=== PATIENT | male | born 1950 | race Asian ===

== ENCOUNTER 2021-02-05 00:44 | Inpatient (IN) | payer MEDICARE, OTHER ==
[~2021-02-05] VITALS: Ht 167.6 cm; Wt 70.8 kg
[2021-02-05 00:44] VITALS: BP_SYST 101
[~2021-02-05 00:44] MED LIST: ALBU17AE13 INH; AMOX500C2 PO; ATEN-41 PO; FURO20TA4 IVP; KLOR-CON PO; LISI20TA30 PO; WARF3TAB59 PO
--- NOTE | 2021-02-05 00:44 | NUR ---
ADMISSION- DIRECT ADMIT FROM [facility]: The patient, SANTANA BLUM, 70 y/o, M DIRECTLY admitted by SOL WLATON MD, was given written information regarding hospital policies, unit procedures and contact persons. Valuables were checked and DOCUMENTED.
--- NOTE | 2021-02-05 01:30 | NUR ---
INITIAL NOTE AT INITIAL ASSESSMENT, PATIENT IS RESTING IN BED, STABLE, NO SIGNS OF RESPIRATORY DISTRESS. PATIENT VERBALIZES NO PAIN. PLAN OF CARE FOR THE EVENING IS COMMUNICATED WITH THE PATIENT. PATIENT DEMONSTRATES CORRECT USAGE OF CALL LIGHT AT THIS TIME. BED IS LOCKED, ALARMED, AND AT THE LOWEST LEVEL. FALL SAFETY EDUCATION PROVIDED. FALL, SAFETY, ASPIRATION, AND RESPIRATORY PRECAUTIONS WILL BE TAKEN THROUGHOUT THE SHIFT.
--- NOTE | 2021-02-05 01:50 | NUR ---
HYGIENE CARE NOTE HYGIENE CARE IS PROVIDED AT THIS TIME, FRESH LINENS PROVIDED, AND PATIENT IS REPOSITIONED FOR COMFORT. PATIENT TOLERATED WELL. CALL LIGHT PLACED WITHIN REACH. BED IS LOCKED, ALARMED, AND AT THE LOWEST LEVEL.
[2021-02-05] MEDS ORDERED: ALBUTEROL 90 MCG INH PRN (02:00)
[2021-02-05] MEDS ORDERED: ALBUTEROL MDI INHALATION 8 GM INH INH PRN (02:15)
[2021-02-05] MEDS ORDERED: FAMO20TA8 PO (02:59)
[2021-02-05] MEDS ORDERED: FLUT1BLS10 INH (02:59)
[2021-02-05] MEDS ORDERED: ACET325T PO (02:59)
[2021-02-05] MEDS ORDERED: CARV3.1246 PO (02:59)
[2021-02-05] MEDS ORDERED: DOXY100T2 IVPB (02:59)
[2021-02-05] MEDS ORDERED: LOSA50TA3 PO (02:59)
[2021-02-05] MEDS: ALBUTEROL SULFATE 0.083% 2.5 MG/3 ML VIAL.NEB INH PRN ×2 (03:55→08:04)
--- NOTE | 2021-02-05 03:55 | NUR ---
BEHAVIOR PATIENT WAS AGITATED AND RUDE DURING THE SHIFT. FOR EXAMPLE, PATIENT WANTED A BREATHING TREATMENT AND ALTHOUGH HIS OXYGEN SATURATION WAS 99%, RT WAS CALLED, AND WITHIN THE 15 MINUTES IT TOOK TO GET THE ORDER, GET THE ORDER APPROVED BY PHARMACY AND TO PAGE RT, PATIENT CALLED THE NURSING STATION 8 TIMES YELLING AND SCREAMING BECAUSE HE WANTED HIS BREATHING TREATMENT.
--- NOTE | 2021-02-05 06:10 | NUR ---
COMMUNICATION W/ DR. WALTON COMMUNICATED TO DR. WALTON THAT PATIENT WAS ON COUMADIN THERAPY, DR. WALTON GAVE NEW ORDERS. ALL ORDERS READ BACK, VERIFIED, AND ENTERED.
--- NOTE | 2021-02-05 06:40 | NUR ---
CLOSING NOTE PATIENT SLEPT WELL THROUGHOUT THE SHIFT, NO SHORTNESS OF BREATH NOTED. AT THIS TIME, PATIENT IS RESTING IN BED, STABLE, NO SIGNS OF RESPIRATORY DISTRESS. CALL LIGHT IS WITHIN REACH. BED IS LOCKED, ALARMED, AND AT THE LOWEST LEVEL. FALL, SAFETY, ASPIRATION, AND RESPIRATORY PRECAUTIONS HAVE BEEN TAKEN THROUGHOUT THE SHIFT. WILL CONTINUE TO MONITOR UNTIL SHIFT REPORT IS GIVEN AT BEDSIDE TO AM NURSE. Addendum: 02/05/21 at 0743 by Ruba Read RN NO DIARRHEA NOTED DURING THE NIGHT.
[2021-02-05 08:00] VITALS: BP_SYST 112
[2021-02-05 08:02] LABS: BASOPHILS % (AUTO) 0.1 % (0.0-2.0); EOSINOPHILS # (AUTO) 0.1 K/uL (0.0-0.4); HEMOGLOBIN 11.2 g/dL (14.0-18.0); LYMPHOCYTES # (AUTO) 0.2 K/uL (1.0-5.5); LYMPHOCYTES % (AUTO) 1.5 % (20.5-51.5); MEAN CORPUSCULAR HEMOGLOBIN 30 pg (27-31); MEAN CORPUSCULAR HGB CONC 33 % (32-36); MEAN CORPUSCULAR VOLUME 91 fL (79.0-98.0); MONOCYTES # (AUTO) 0.5 K/uL (0.0-1.0); MONOCYTES % (AUTO) 4.2 % (1.7-9.3); NEUTROPHILS % (AUTO) 93.2 % (40.0-70.0); PLATELET COUNT (AUTO) 140 K/uL (130-430); RED BLOOD CELL COUNT(AUTO) 3.74 MIL/uL (4.2-6.2); RED CELL DISTRIBUTION WIDTH 16.2 % (9.0-15.0); WHITE BLOOD COUNT (AUTO) 10.8 K/uL (4.8-10.8)
--- NOTE | 2021-02-05 08:05 | NUR ---
RT NOTE: 08 Pt given tx and informed that we needed a sputum sample. Pt states that his cough has been dry and will provide sputum sample if he is able to. Left specimen cup at bedside for pt to use. Addendum: 02/05/21 at 0816 by Ashley Ritchie RT Amended: Links added.
[2021-02-05 08:56] LABS: INR 2.5 (0.80-1.20); PROTHROMBIN TIME 25.4 SECS (9.5-12.5)
[2021-02-05] MEDS ORDERED: CARVEDILOL 3.125 MG TABLET (COREG) PO SCH (09:00)
[2021-02-05] MEDS ORDERED: ACETAMINOPHEN 325 MG TABLET PO PRN (10:00)
[2021-02-05] MEDS ORDERED: FLUTICASONE 100 mCg/SALMETEROL 50 mCg DISKUS W.DEV INH SCH (10:00)
[2021-02-05] MEDS ORDERED: WARFARIN SODIUM 3 MG TABLET PO SCH ×2 (10:00→18:00)
--- NOTE | 2021-02-05 10:08 | NUR ---
Nutrition Update Ko Scale 18 noted. Pt admitted for severe sepsis, pneumonia, diarrhea. Diet: cardiac BMI: N/A RD to follow per nutrition care standards.
[2021-02-05] MEDS ORDERED: CARVEDILOL 3.125 MG TABLET (COREG) PO ONE (10:15)
[2021-02-05] MEDS ORDERED: FUROSEMIDE 20 MG TABLET PO ONE (10:15)
[2021-02-05] MEDS ORDERED: DOXYCYCLINE HYCLATE 100 MG CAPSULE PO ONE (10:15)
[2021-02-05] MEDS ORDERED: WARFARIN SODIUM 3 MG TABLET PO ONE (10:15)
[2021-02-05] MEDS ORDERED: LOSARTAN POTASSIUM 50 MG TABLET (COZAAR) PO ONE (10:15)
[2021-02-05 10:33] LABS: ALBUMIN 1.9 g/dL (3.4-4.8); CALCIUM 7.6 mg/dL (8.4-11.0); CREATININE 1.36 mg/dL (0.55-1.30); POTASSIUM 3.6 mmol/L (3.5-5.1)
[2021-02-05] MEDS ORDERED: ALBUTEROL SULFATE 0.083% 2.5 MG/3 ML VIAL.NEB INH PRN (13:30)
[2021-02-05] MEDS: ALBUTEROL SULFATE 0.083% 2.5 MG/3 ML VIAL.NEB INH SCH ×2 (13:33→20:35)
[2021-02-05] MEDS ORDERED: LACTOBACILLUS RHAMNOSUS GG 1 CAP CAPSULE PO ONE (14:00)
--- NOTE | 2021-02-05 14:01 | NUR ---
CONSULT CARDIOLOGY CHF CLIFFORD ARREOLA [phone] S/W TESS EXCHANGE
--- NOTE | 2021-02-05 14:02 | NUR ---
CONSULT ID PNEUMONIA DR BETHEA [phone] S/W STACEY EXCHANGE
[2021-02-05] MEDS ORDERED: POTASSIUM CHLORIDE 10 MEQ TAB.PRT.SR PO ONE (14:15)
[2021-02-05] MEDS: cefTRIAXone 1 GM in D5W 50 ML IV SCH (15:00)
[2021-02-05] MEDS: SILDENAFIL CITRATE 20 MG TABLET PO SCH ×2 (15:00→20:57)
[2021-02-05 16:00] VITALS: BP_SYST 111
--- NOTE | 2021-02-05 19:20 | NUR ---
CHANGE OF SHIFT; endorsed by day shift. admitted early am today for shortness of breath and cough. on fall risk precaution, bed alarm on. call light within reach.
[2021-02-05 20:00] VITALS: BP_SYST 101
--- NOTE | 2021-02-05 20:00 | NUR ---
NOTES: pt. checked, been c/o IV site hurting. needs not being attended. pt. informed plan of care. RT here for breathing treatment. O2 @ 2 liters per nasal canulla, gets short of breath on exertion and some occ. bouts of non productive cough and wheezing. VS checked. urinal at bedside. rt. leg noted with skin discoloration due to coumadin per pt. on quality assurance monitor final and shows atrial fib, controlled rate. call light at bedside. informed pt. will be back for medications and will start another IV site.
[2021-02-05] MEDS: LACTOBACILLUS RHAMNOSUS GG 1 CAP CAPSULE PO SCH (20:29)
[2021-02-05] MEDS: FAMOTIDINE 20 MG TABLET PO SCH (20:30)
--- NOTE | 2021-02-05 20:30 | NUR ---
NOTES: due medications given. dangling at bedside. wants his underwear put on. unable to inert an IV, asked charge nurse Carlos Manuel to reinsert.
[2021-02-05] MEDS: BUDESONIDE 0.5 MG/2 ML AMPUL.NEB INH SCH (20:36)
[2021-02-05] MEDS: CARVEDILOL 3.125 MG TABLET (COREG) PO SCH (20:52)
[2021-02-05] MEDS: POTASSIUM CHLORIDE 10 MEQ TAB.PRT.SR PO SCH (20:54)
[2021-02-05] MEDS ORDERED: FUROSEMIDE 20 MG TABLET PO SCH (21:00)
[2021-02-05] MEDS ORDERED: FAMOTIDINE 20 MG TABLET PO SCH (21:00)
[2021-02-05] MEDS ORDERED: DOXYCYCLINE HYCLATE 100 MG CAPSULE PO SCH (21:00)
--- NOTE | 2021-02-05 21:30 | NUR ---
NOTES: 'pt. was sleeping ,awakened for IV but wants it in the morning, wants to sleep at this time per charge nurse. old IV removed, infiltrated.
--- NOTE | 2021-02-05 22:15 | NUR ---
NOTES: pt. sleeping. urine sent to lab for UA.
[2021-02-05 22:26] LABS: BILIRUBIN,URINE NEGATIVE (NEGATIVE); BLOOD, URINE NEGATIVE (NEGATIVE); CLARITY/URINE CLEAR (CLEAR); COLOR,URINE YELLOW (YELLOW); GLUCOSE,URINE NEGATIVE (NEGATIVE); KETONES,URINE NEGATIVE (NEGATIVE); LEUKOCYTE ESTERASE ,URINE NEGATIVE (NEGATIVE); NITRITE, URINE NEGATIVE (NEGATIVE); PH,URINE 5.5 (5.0-8.0); PROTEIN URINE NEGATIVE (NEGATIVE)
[2021-02-06] VITALS: BP_SYST 104
--- NOTE | 2021-02-06 00:03 | NUR ---
NOTES: pt. called saying he is hungry, wash his grapes and gave his cookie bread. dangling at bedside.
[2021-02-06] MEDS: ALBUTEROL SULFATE 0.083% 2.5 MG/3 ML VIAL.NEB INH SCH ×4 (01:00→18:05)
--- NOTE | 2021-02-06 04:30 | NUR ---
NOTES: pt. sleeping when checked. condition observed, coninue to monitor.
[2021-02-06] MEDS ORDERED: FUROSEMIDE 40 MG/4 ML VIAL IVP SCH (06:30)
--- NOTE | 2021-02-06 06:35 | NUR ---
CLOSING NOTES; Dr. Adams here, seen pt. and examined. IV site needs to be reinserted. kept O2 @ 2 liters per nc. pt. voided per urinal. Lasix will change to IV per MD> charge nurse to try to insert IV. for further care and assistance. bed alarm on. call ligth within reach.
[2021-02-06 08:02] VITALS: BP_SYST 115
[2021-02-06] MEDS: BUDESONIDE 0.5 MG/2 ML AMPUL.NEB INH SCH ×2 (08:18→18:05)
--- NOTE | 2021-02-06 08:36 | NUR ---
OPENING NOTES: PATIENT EATING BREAKFAST. BREATHING EVEN AND NON LABORED TO O2 AT 2L/NC. DENIES ANY DISCOMFORT AT THIS TIME. FALL, SAFETY AND ASPIRATION MEASURES REINFORCED. CALL LIGHT WITHIN REACH.
--- NOTE | 2021-02-06 08:39 | NUR ---
SPOKE TO DR. AUSTIN: PER DR. AUSTIN, GIVE 40 MG LASIX IV ONCE. WILL ENTER THE ORDER.
[2021-02-06] MEDS ORDERED: FUROSEMIDE 40 MG/4 ML VIAL IVP ONE (08:45)
[2021-02-06] MEDS: POTASSIUM CHLORIDE 10 MEQ TAB.PRT.SR PO SCH ×2 (08:46→20:31)
[2021-02-06] MEDS: LACTOBACILLUS RHAMNOSUS GG 1 CAP CAPSULE PO SCH ×2 (08:46→20:31)
[2021-02-06] MEDS: LOSARTAN POTASSIUM 50 MG TABLET (COZAAR) PO SCH (08:47)
[2021-02-06] MEDS: CARVEDILOL 3.125 MG TABLET (COREG) PO SCH ×2 (08:48→20:32)
[2021-02-06] MEDS: SILDENAFIL CITRATE 20 MG TABLET PO SCH ×2 (08:56→14:59)
[2021-02-06] MEDS ORDERED: AZITHROMYCIN 250 MG TABLET PO SCH (09:00)
[2021-02-06 09:31] LABS: ALBUMIN 2.1 g/dL (3.4-4.8); CREATININE 1.28 mg/dL (0.55-1.30); PHOSPHORUS 2.7 mg/dL (2.7-4.5); POTASSIUM 4.3 mmol/L (3.5-5.1); TOTAL BILIRUBIN 1.7 mg/dL (0.0-1.0)
[2021-02-06 10:02] LABS: INR 4.3 (0.80-1.20)
--- NOTE | 2021-02-06 10:25 | NUR ---
RN NOTES/ MD PAGED: DR. JUDD PAGED FOR CRITICAL INR AND PT RESULT. WILL FF UP.
[2021-02-06 12:00] VITALS: BP_SYST 118
[2021-02-06 12:24] LABS: BASOPHILS % (AUTO) 0.2 % (0.0-2.0); EOSINOPHILS # (AUTO) 0.1 K/uL (0.0-0.4); EOSINOPHILS % (AUTO) 1.1 % (0.0-4.0); HEMATOCRIT 36.5 % (36-54); HEMOGLOBIN 11.9 g/dL (14.0-18.0); LYMPHOCYTES # (AUTO) 0.3 K/uL (1.0-5.5); MEAN CORPUSCULAR HEMOGLOBIN 30 pg (27-31); MEAN CORPUSCULAR HGB CONC 33 % (32-36); MEAN CORPUSCULAR VOLUME 92 fL (79.0-98.0); MONOCYTES # (AUTO) 0.6 K/uL (0.0-1.0); MONOCYTES % (AUTO) 6.7 % (1.7-9.3); NEUTROPHILS # (AUTO) 7.5 K/uL (1.8-7.7); PLATELET COUNT (AUTO) 182 K/uL (130-430); RED BLOOD CELL COUNT(AUTO) 3.98 MIL/uL (4.2-6.2); RED CELL DISTRIBUTION WIDTH 16.7 % (9.0-15.0); WHITE BLOOD COUNT (AUTO) 8.5 K/uL (4.8-10.8)
[2021-02-06] MEDS: cefTRIAXone 1 GM in D5W 50 ML IV SCH (14:59)
--- NOTE | 2021-02-06 15:36 | NUR ---
RN NOTES: ASSISTED PATIENT TO THE BATHROOM. SHORTNESS OF BREATH NOTED. PUT BACK TO BED. FALL AND SAFETY MEASURES RENDERED. CALL LIGHT WITHIN REACH.
[2021-02-06 16:00] VITALS: BP_SYST 114
--- NOTE | 2021-02-06 18:56 | NUR ---
RN NOTES: PATIENT C/O ITCHINESS. SPOKE TO DR. JUDD AND NEW ORDER MADE. PER DR. JUDD, MAY GIVE BENADRYL 25 MG Q4 HOURS NEEDED FOR ITCHINESS. WILL PUT THE ORDER.
--- NOTE | 2021-02-06 19:15 | NUR ---
CHANGE OF SHIFT; endorsed by day shift. no acute distress. bed in low posiiton. on fall risk precaution. call light at bedside.
--- NOTE | 2021-02-06 19:28 | NUR ---
CLOSING NOTES: PATIENT RESTING IN BED. BREATHING EVEN AND NON LABORED AT O2 AT 2L/NC. IV INFUSING WELL. FALL AND SAFETY MEASURES PROVIDED. CALL LIGHT WITHIN REACH.
[2021-02-06 20:00] VITALS: BP_SYST 110
--- NOTE | 2021-02-06 20:00 | NUR ---
NOTES: pt. awake when checked, verbalizing he is dying since he is been itching and short of breath. VS checked. IV site on left hand. O2 @ 2 liters per nc, occ. bouts f non productive cough, O2 sat 100%. pt. gets short of breath on exertion. 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 call light at bedside.
[2021-02-06] MEDS: FAMOTIDINE 20 MG TABLET PO SCH (20:31)
[2021-02-06] MEDS: DIPHENHYDRAMINE HCL 25 MG CAPSULE PO PRN (20:32)
[2021-02-06] MEDS: FUROSEMIDE 40 MG/4 ML VIAL IVP SCH (20:33)
[2021-02-06] MEDS: DOXYCYCLINE HYCLATE 100 MG in D5W 100 ML IV SCH (20:47)
--- NOTE | 2021-02-06 21:00 | NUR ---
NOTES: due medications given and able to swallow ok. repositioned self. urinals at bedside.
--- NOTE | 2021-02-07 00:15 | NUR ---
NOTES: pt. checked, still awake. emptied urinal. IV site patent for IV antibiotic.
[2021-02-07 00:45] VITALS: BP_SYST 109
[2021-02-07] MEDS: ALBUTEROL SULFATE 0.083% 2.5 MG/3 ML VIAL.NEB INH SCH ×4 (01:00→19:35)
[2021-02-07] MEDS: SILDENAFIL CITRATE 20 MG TABLET PO SCH ×5 (02:05→23:03)
--- NOTE | 2021-02-07 02:06 | NUR ---
NOTES: pt. sleeping when made rounds.
--- NOTE | 2021-02-07 05:02 | NUR ---
NOTES: pt. unable to get to the restroom and had bm on the floor. complete am care/gabby care done. linen and gown changed. repositioned self for comfort.
--- NOTE | 2021-02-07 06:42 | NUR ---
CLOSING NOTES; pt. went back to sleep. IV site patent. condition unchanged. for further care and assistance. O2 on. still with occ. cough. HOB elevated. both legs with venous stasis, rt. leg with ecchymosis due to coumadin. will endorse to incoming shift. call light at bedside. Addendum: 02/07/21 at 0653 by Tina Eddy RN [id number] Dr Adams here and seen pt.
[2021-02-07 06:47] LABS: BASOPHILS % (AUTO) 0.5 % (0.0-2.0); EOSINOPHILS # (AUTO) 0.2 K/uL (0.0-0.4); EOSINOPHILS % (AUTO) 2.5 % (0.0-4.0); HEMATOCRIT 35.5 % (36-54); HEMOGLOBIN 11.6 g/dL (14.0-18.0); LYMPHOCYTES # (AUTO) 0.4 K/uL (1.0-5.5); LYMPHOCYTES % (AUTO) 5.4 % (20.5-51.5); MEAN CORPUSCULAR HEMOGLOBIN 30 pg (27-31); MEAN CORPUSCULAR HGB CONC 33 % (32-36); MEAN CORPUSCULAR VOLUME 92 fL (79.0-98.0); MONOCYTES # (AUTO) 0.5 K/uL (0.0-1.0); MONOCYTES % (AUTO) 7.2 % (1.7-9.3); NEUTROPHILS # (AUTO) 6.3 K/uL (1.8-7.7); NEUTROPHILS % (AUTO) 84.4 % (40.0-70.0); PLATELET COUNT (AUTO) 211 K/uL (130-430); RED BLOOD CELL COUNT(AUTO) 3.85 MIL/uL (4.2-6.2); RED CELL DISTRIBUTION WIDTH 16.8 % (9.0-15.0); WHITE BLOOD COUNT (AUTO) 7.4 K/uL (4.8-10.8)
[2021-02-07] MEDS: BUDESONIDE 0.5 MG/2 ML AMPUL.NEB INH SCH ×2 (07:00→19:30)
[2021-02-07 07:53] LABS: ALBUMIN 2.1 g/dL (3.4-4.8); CALCIUM 7.8 mg/dL (8.4-11.0); CREATININE 1.31 mg/dL (0.55-1.30); POTASSIUM 4.1 mmol/L (3.5-5.1); TOTAL BILIRUBIN 1.4 mg/dL (0.0-1.0)
[2021-02-07 08:00] VITALS: BP_SYST 115
[2021-02-07] MEDS: LOSARTAN POTASSIUM 50 MG TABLET (COZAAR) PO SCH (08:27)
[2021-02-07] MEDS: LACTOBACILLUS RHAMNOSUS GG 1 CAP CAPSULE PO SCH ×3 (08:27→22:27)
[2021-02-07] MEDS: POTASSIUM CHLORIDE 10 MEQ TAB.PRT.SR PO SCH ×3 (08:27→22:28)
[2021-02-07] MEDS: CARVEDILOL 3.125 MG TABLET (COREG) PO SCH ×3 (08:28→22:27)
[2021-02-07] MEDS: FUROSEMIDE 40 MG/4 ML VIAL IVP SCH ×2 (08:28→22:26)
[2021-02-07] MEDS: DOXYCYCLINE HYCLATE 100 MG in D5W 100 ML IV SCH (08:31)
[2021-02-07 09:12] LABS: INR 5.7 (0.80-1.20); PROTHROMBIN TIME 56.3 SECS (9.5-12.5)
--- NOTE | 2021-02-07 11:09 | NUR ---
Dietitian Recommendations *Recommend: continue Cardiac diet. Please see Nutritional Assessment for details.
[2021-02-07 12:12] VITALS: BP_SYST 97
--- NOTE | 2021-02-07 13:00 | NUR ---
RN NOTES: PATIENT RESTING IN BED. STABLE CONDITION . NO S/S OF ACUTE DISTRESS NOTED.
[2021-02-07] MEDS ORDERED: PIPERACILLIN/TAZO 2.25G/DEX-IS 50 ML IV SCH (14:00)
[2021-02-07 16:23] VITALS: BP_SYST 112
[2021-02-07] MEDS: PIPERACILLIN/TAZO 2.25G/DEX-IS 50 ML IV SCH ×2 (16:48→22:24)
[2021-02-07] MEDS: DIPHENHYDRAMINE HCL 25 MG CAPSULE PO PRN (16:51)
[2021-02-07 19:00] VITALS: BP_SYST 112
[2021-02-07] MEDS: FAMOTIDINE 20 MG TABLET PO SCH ×2 (21:00→22:32)
--- NOTE | 2021-02-07 23:21 | NUR ---
ALL MEDS REFUSED BY PT FOR P.M. 02/07/21. PT WAS EXPLAINED PURPOSE OF EACH MED. PT THEN C/O NOT BEING TOLD WHAT THEY WERE FOR. MEDICATIONS HELD (REFUSED BY PT) ALSO INCLUDE LASIX (IVP) AND ZOSYN IVPB.
[2021-02-08] MEDS: ALBUTEROL SULFATE 0.083% 2.5 MG/3 ML VIAL.NEB INH SCH ×2 (01:14→07:00)
[2021-02-08 01:25] VITALS: BP_SYST 115
--- NOTE | 2021-02-08 01:45 | NUR ---
PT'S R-LOWER TELEMETRY LEAD IS DISCONNECTED. NURSE WENT INTO ROOM TO AND FOUND PT AWAKE, MAKING HIS BED. IT WAS EXPLAINED TO PT THAT HE IS ON A TELEMETRY UNIT AND ALL PTS ARE REQUIRED TO WEAR A TELEMETRY BOX. PT STATED: "MY DOCTOR HASN'T TOLD ME THIS." PT'S PRIMARY AND DAY RN WILL BE NOTIFIED IN A.M.
[2021-02-08] MEDS: PIPERACILLIN/TAZO 2.25G/DEX-IS 50 ML IV SCH (04:00)
[2021-02-08] MEDS ORDERED: FUROSEMIDE 40 MG/4 ML VIAL IVP SCH (06:00)
[2021-02-08 06:20] LABS: BASOPHILS % (AUTO) 0.5 % (0.0-2.0); EOSINOPHILS # (AUTO) 0.1 K/uL (0.0-0.4); EOSINOPHILS % (AUTO) 0.8 % (0.0-4.0); HEMATOCRIT 36.3 % (36-54); HEMOGLOBIN 11.5 g/dL (14.0-18.0); LYMPHOCYTES # (AUTO) 0.5 K/uL (1.0-5.5); LYMPHOCYTES % (AUTO) 7.3 % (20.5-51.5); MEAN CORPUSCULAR HEMOGLOBIN 29 pg (27-31); MEAN CORPUSCULAR HGB CONC 32 % (32-36); MEAN CORPUSCULAR VOLUME 93 fL (79.0-98.0); MONOCYTES # (AUTO) 0.5 K/uL (0.0-1.0); NEUTROPHILS # (AUTO) 5.5 K/uL (1.8-7.7); NEUTROPHILS % (AUTO) 83.4 % (40.0-70.0); PLATELET COUNT (AUTO) 202 K/uL (130-430); RED BLOOD CELL COUNT(AUTO) 3.91 MIL/uL (4.2-6.2); RED CELL DISTRIBUTION WIDTH 16.5 % (9.0-15.0); WHITE BLOOD COUNT (AUTO) 6.5 K/uL (4.8-10.8)
[2021-02-08 06:28] LABS: CALCIUM 8.3 mg/dL (8.4-11.0); CREATININE 1.03 mg/dL (0.55-1.30); POTASSIUM 4.6 mmol/L (3.5-5.1)
[2021-02-08] MEDS: BUDESONIDE 0.5 MG/2 ML AMPUL.NEB INH SCH (07:00)
--- NOTE | 2021-02-08 08:04 | NUR ---
WENT TO ROOM TO CHECK PT. PT IS SITTING IN CHAIR. PT STATED I WANTED TO LEAVE. ASKED PT WHAT HAPPENED PT STATED I AM NOT HAPPY FROM LAST NIGHT. THIS RN ASKED WE CAN HELP U RIGHT NOW. PT IS REFUSING VITALS SIGN AND TELEMONITOR. PT STATED DONT TOUCH ME. THIS RN INFORMED CHARGE NURSE REGAN. CHARGE NURSE SPOKE TO PT. PT ASKED CHARGE NURSE TO [facility] ROOM. WILL NOTIFY DR WALTON
--- NOTE | 2021-02-08 08:41 | NUR ---
PT IS CONTINUOUSLY REFUSING TREATMENT. AND BREAKFAST. PT SIGHNED AMA FORM .GASOLINE TESTER BRUNO TALKING TO PT RIGHT NOW
--- NOTE | 2021-02-08 09:30 | NUR ---
AMA: Patient does not wish to proceed with medical care recommended by . Patient given information related to possible complications, up to and including , which could occur as a result of leaving hospital at this time. Patient verbalizes understanding of risks involved leaving against medical advice. Patient has signed AMA form.pt refused for physical assessment. and vitals signs .iv removed by charge nurse lázaro pt went home with friend roland.dr carter hide shaker notified.
[2021-02-08 10:40] VITALS: BP_SYST 115
--- NOTE | 2021-02-08 12:14 | NUR ---
PHYSICAL THERAPY CO-SIGN The Physical Therapy Progress Notes documented by Finish Photographer have been reviewed. Reviewed/Co-Signed by: Corbin Puckett Documentation Done by: LEEROY SANON PTA Addendum: 02/08/21 at 1215 by Corbin Puckett PT Amended: Links added.
== END 2021-02-08 09:30 | disposition left against medical advice (07) | DRG 871 ==
LOC: SMU 00:44 → STU 02:18
PROVIDERS: ADMIT Internal Medicine; ATTEND Internal Medicine
DX: A41.9 Sepsis, unspecified organism (principal); J18.9 Pneumonia, unspecified organism; J96.01 Acute respiratory failure with hypoxia; I50.33 Acute on chronic diastolic (congestive) heart failure; I48.20 Chronic atrial fibrillation, unspecified; I31.3 Pericardial effusion (noninflammatory); N17.9 Acute kidney failure, unspecified; I42.9 Cardiomyopathy, unspecified; J91.8 Pleural effusion in other conditions classified elsewhere; Z53.29 Procedure and treatment not carried out because of patient's decision for other reasons; J45.909 Unspecified asthma, uncomplicated; I27.20 Pulmonary hypertension, unspecified; K74.60 Unspecified cirrhosis of liver; Z20.822 Contact with and (suspected) exposure to COVID-19; E88.09 Other disorders of plasma-protein metabolism, not elsewhere classified; T45.515A Adverse effect of anticoagulants, initial encounter; I11.0 Hypertensive heart disease with heart failure; Z79.01 Long term (current) use of anticoagulants; Z79.1 Long term (current) use of non-steroidal anti-inflammatories (NSAID); Z79.899 Other long term (current) drug therapy; Z85.118 Personal history of other malignant neoplasm of bronchus and lung; Z92.3 Personal history of irradiation; Z95.2 Presence of prosthetic heart valve; Y92.89 Other specified places as the place of occurrence of the external cause; Z90.49 Acquired absence of other specified parts of digestive tract
CPT/HCPCS: 36415; 71045; 71250-TC; 76376; 80048; 80053; 81003; 82140; 83735; 83880; 84100; 85025; 85610-TC; 85730-TC; 86710; 86738; 87070-TC; 87081; 87205-TC; 87449; 93306; 94640; 94760; 97110-GP; 97116-GP; 97163-GP; 97530-GP; G0378; J0696; J1940; J2543; J3490; J7060; J7613; J7626; Q0144; Q0163